=== PATIENT | male | born 1980 | race Caucasian/White ===

== ENCOUNTER 2024-07-28 22:04 | Inpatient (IN) | payer OTHER, SELFPAY ==
[~2024-07-28 22:04] MED LIST: Iopamidol 370 76% 100 ML VIAL ONE
[2024-07-28] MEDS ORDERED: Folic Acid 1 MG TAB ONE (22:41)
[2024-07-28] MEDS ORDERED: Diazepam 10 MG/2 ML SYRINGE ONE ×2 (22:42→23:44)
[2024-07-28 23:01] LABS: #Basophils Less than 0.03 10x3/uL (0.0-0.2); #Eosinophils Less than 0.03 10x3/uL (0.0-0.7); %Basophils 0.5 % (0.0-1.0); %Eosinophils 0.2 % (0.0-10.0); %Lymphocytes 20.2 % (21.0-51.0); %Monocytes 8.8 % (0.0-10.0); %Neutrophils 69.3 % (42.0-75.0); Hematocrit 39.3 % (42.0-52.0); Hemoglobin 13.6 g/dL (14.0-18.0); Mean Corpuscular HGB CONC 34.6 g/dL (32.0-36.0); Mean Corpuscular Hemoglobin 39.2 pg (27.0-31.0); Mean Corpuscular Volume 113.3 fL (78.0-98.0); Mean Platelet Volume 10.8 fL (7.4-10.4); Platelet Count 40 10x3/uL (130-400); RBC Distribution Width 13.2 % (11.5-14.5); Red Blood Cell (RBC) Count 3.47 mill/uL (4.70-6.10)
[2024-07-28 23:11] LABS: INR-International Normal Ratio 1.1; PTT 26.2 sec (22.9-36.1); Prothrombin Time 14.1 sec (12.0-14.7)
[2024-07-28 23:19] LABS: Hypochromia SLIGHT = 6-15 cells HPF (0-5); Macrocytosis SLIGHT = 6-15 cells HPF (0-5); Platelet Adequacy Comment Platelets Decreased; Polychromasia SLIGHT = 2-3 cells HPF (0-2); Troponin I Less than 0.010 ng/mL (< 0.028)
[2024-07-28 23:22] LABS: ALT (SGPT) 139 U/L (8-55); AST (SGOT) 234 U/L (5-34); Albumin 4.2 g/dL (3.5-5.0); Alkaline Phosphatase 114 U/L (40-110); Anion Gap 28 mmol/L (10-20); BUN (Urea Nitrogen) 12 mg/dL (8.9-20.6); Bilirubin, Total 1.7 mg/dL (0.2-1.2); Calc. Creatinine Clearance 0 mL/min (70-130); Calcium 9.2 mg/dL (7.8-10.44); Carbon Dioxide 15 mmol/L (22-29); Chloride 99 mmol/L (98-107); Estimated GFR 109; Globulin 2.5 g/dL (2.4-3.5); Glucose 139 mg/dL (70-105); Lipase 46 U/L (8-78); Magnesium 1.7 mg/dL (1.6-2.6); Potassium 3.5 mmol/L (3.5-5.1); Protein, Total 6.7 g/dL (6.0-8.3); Sodium 138 mmol/L (136-145)
[2024-07-28 23:23] LABS: Acetaminophen Less than 10 mcg/mL (Less than 10); Alcohol Less than 10.0 mg/dL (Less than 10); Salicylate Less than 8.0 mg/dL (Less than 8.0)
[2024-07-29 00:11] LABS: Bacteria/HPF None Seen HPF (None Seen); Bilirubin Negative (Negative); Blood, Urine 1+ (Negative); CAUTI Indications for Culture Alt mental st,lethar; Clarity Clear (Clear); Glucose, Urine (Dipstick) Normal (Negative); Ketone, Urine Trace mg/dL (Negative); Leukocyte Negative Leu/uL (Negative); Nitrite Negative (Negative); Protein, Urine (Dipstick) 50 mg/dL (Neg-Trace); RBC/HPF 0-3 HPF (0-3); Squamous Epithelial 0-3 HPF (0-3); Urobilinogen Normal mg/dL (Less than 2); WBC/HPF 0-3 HPF (0-3)
[2024-07-29 00:13] LABS: Urine Culture Reflex No No
[2024-07-29 00:24] LABS: Amphetamine Not Detected (NotDetected); Barbiturates Screen Not Detected (NotDetected); Benzodiazepine Screen Not Detected (NotDetected); Cocaine Metabolite Screen Not Detected (NotDetected); Methadone Not Detected (NotDetected); Methamphetamine Not Detected (NotDetected); Opiate Screen Not Detected (NotDetected); Oxycodone Screen Not Detected (NotDetected); Phencyclidine (PCP) Not Detected (NotDetected); THC/Cannabinoid Screen Not Detected (NotDetected); Tricyclic Screen Not Detected (NotDetected)
[2024-07-29] MEDS ORDERED: Magnesium 2 GM/50 ML BAG (IN WATER) ONE (00:51)
[2024-07-29] MEDS ORDERED: Ondansetron PF 4 MG/2 ML Vial IVP PRN (02:28)
[2024-07-29] MEDS ORDERED: Lorazepam 2 MG/ML VIAL IM PRN (02:58)
[2024-07-29] MEDS ORDERED: Ondansetron ODT 4 MG TAB PO PRN (02:58)
[2024-07-29] MEDS ORDERED: Lorazepam 1 MG TAB PO PRN (02:58)
[2024-07-29] MEDS ORDERED: Electrolyte Replacement Protocol 1 EACH FS PRN (03:00)
[2024-07-29 03:30] LABS: #Basophils Less than 0.03 10x3/uL (0.0-0.2); #Eosinophils Less than 0.03 10x3/uL (0.0-0.7); %Basophils 0.3 % (0.0-1.0); %Eosinophils 0.5 % (0.0-10.0); %Lymphocytes 32.7 % (21.0-51.0); %Monocytes 8.3 % (0.0-10.0); %Neutrophils 57.7 % (42.0-75.0); Hematocrit 37.5 % (42.0-52.0); Mean Corpuscular HGB CONC 34.7 g/dL (32.0-36.0); Mean Corpuscular Hemoglobin 38.8 pg (27.0-31.0); Mean Corpuscular Volume 111.9 fL (78.0-98.0); Mean Platelet Volume 9.7 fL (7.4-10.4); Platelet Count 35 10x3/uL (130-400); RBC Distribution Width 13.2 % (11.5-14.5); Red Blood Cell (RBC) Count 3.35 mill/uL (4.70-6.10)
[2024-07-29] MEDS ORDERED: Acetaminophen 500 MG TAB PO PRN (03:52)
[2024-07-29 04:00] LABS: Macrocytosis SLIGHT = 6-15 cells HPF (0-5); Platelet Adequacy Comment Platelets Decreased; Polychromasia SLIGHT = 2-3 cells HPF (0-2)
[2024-07-29 04:07] LABS: Lactic Acid 0.83 mmol/L (0.5-2.2)
[2024-07-29] MEDS: Lorazepam 1 MG TAB PO SCH (04:07)
[2024-07-29 04:08] LABS: Phosphorus 3.1 mg/dL (2.3-4.7)
[2024-07-29 04:11] LABS: ALT (SGPT) 120 U/L (8-55); AST (SGOT) 186 U/L (5-34); Albumin 3.8 g/dL (3.5-5.0); Alkaline Phosphatase 106 U/L (40-110); Anion Gap 17 mmol/L (10-20); BUN (Urea Nitrogen) 9 mg/dL (8.9-20.6); Bilirubin, Total 2.1 mg/dL (0.2-1.2); Calc. Creatinine Clearance 64 mL/min (70-130); Calcium 8.4 mg/dL (7.8-10.44); Carbon Dioxide 22 mmol/L (22-29); Chloride 98 mmol/L (98-107); Estimated GFR 118; Globulin 2.2 g/dL (2.4-3.5); Glucose 90 mg/dL (70-105); Magnesium 2.3 mg/dL (1.6-2.6); Potassium 3.3 mmol/L (3.5-5.1); Sodium 134 mmol/L (136-145)
[2024-07-29 04:30] VITALS: BMI 23.8
[2024-07-29 04:54] LABS: Actual Bicarbonate (HCO3v) 21.2 mEq/L (22-28); Base Excess -2.5 mEq/L (-2.0 to +3.0); Calcium, Ionized (venous) 1.09 mmol/L (1.16-1.32); Chloride (VBG) 96 mmol/L (98-106); Hematocrit-VBG 42 % (42.0-52.0); Hemoglobin (Hb) 14.2 g/dL (13.2-17.3); Potassium (VBG) 3.38 mmol/L (3.70-5.30); Sodium 134 mmol/L (133-146)
[2024-07-29] MEDS ORDERED: Metoprolol Tartrate 25 MG TAB PO SCH (09:00)
[2024-07-29] MEDS: Metoprolol Tartrate 25 MG TAB PO SCH ×3 (10:01→15:57)
[2024-07-29] MEDS: dilTIAZem 25 MG/5 ML VIAL SLOW IVP SCH (10:01)
[2024-07-29] MEDS: Multivit, Therapeutic 1 TAB PO SCH (10:01)
[2024-07-29] MEDS: Potassium Chloride 20 MEQ TAB PO SCH (10:04)
[2024-07-29] MEDS: Pantoprazole 40 MG VIAL IVP SCH (10:06)
[2024-07-29] MEDS: Diltiazem HCl/D5W 125 MG in Premix 1 BAG IVPB SCH (10:12)
[2024-07-29] MEDS: Senokot S 8.6-50 MG TAB PO SCH (14:55)
[2024-07-29] MEDS: Polyethylene Glycol 3350 17 GM Packet PO SCH (14:55)
[2024-07-30] MEDS ORDERED: Lorazepam 1 MG TAB PO PRN (02:58)
[2024-07-30] MEDS: Thiamine HCl 200 MG/2 ML VIAL SLOW IVP SCH (03:06)
[2024-07-30 05:10] LABS: ALT (SGPT) 92 U/L (8-55); AST (SGOT) 105 U/L (5-34); Albumin 3.9 g/dL (3.5-5.0); Alkaline Phosphatase 131 U/L (40-110); Anion Gap 18 mmol/L (10-20); BUN (Urea Nitrogen) 15 mg/dL (8.9-20.6); Bilirubin, Total 1.2 mg/dL (0.2-1.2); Calc. Creatinine Clearance 101 mL/min (70-130); Calcium 9.6 mg/dL (7.8-10.44); Carbon Dioxide 23 mmol/L (22-29); Chloride 99 mmol/L (98-107); Estimated GFR 101; Globulin 2.3 g/dL (2.4-3.5); Glucose 77 mg/dL (70-105); Magnesium 1.7 mg/dL (1.6-2.6); Potassium 4.5 mmol/L (3.5-5.1); Protein, Total 6.2 g/dL (6.0-8.3); Sodium 135 mmol/L (136-145)
[2024-07-30 05:30] LABS: #Basophils 0.03 10x3/uL (0.0-0.2); %Basophils 0.5 % (0.0-1.0); %Eosinophils 1.6 % (0.0-10.0); %Neutrophils 48.5 % (42.0-75.0); Hematocrit 39.6 % (42.0-52.0); Hemoglobin 13.7 g/dL (14.0-18.0); Mean Corpuscular HGB CONC 34.6 g/dL (32.0-36.0); Mean Corpuscular Hemoglobin 38.9 pg (27.0-31.0); Mean Corpuscular Volume 112.5 fL (78.0-98.0); Mean Platelet Volume 11.1 fL (7.4-10.4); Platelet Count 41 10x3/uL (130-400); RBC Distribution Width 12.9 % (11.5-14.5); Red Blood Cell (RBC) Count 3.52 mill/uL (4.70-6.10)
[2024-07-30] MEDS: Magnesium 2 GM/50 ML(in water) 2 GM in Premix 1 BAG IVPB SCH (08:53)
[2024-07-30] MEDS: Folic Acid 1 MG TAB PO SCH (08:54)
[2024-07-31] MEDS: Lorazepam 0.5 MG TAB PO SCH (02:51)
[2024-07-31] MEDS ORDERED: Lorazepam 1 MG TAB PO PRN (02:58)
[2024-07-31 05:02] LABS: ALT (SGPT) 70 U/L (8-55); AST (SGOT) 69 U/L (5-34); Albumin 3.5 g/dL (3.5-5.0); Alkaline Phosphatase 152 U/L (40-110); Anion Gap 14 mmol/L (10-20); BUN (Urea Nitrogen) 18 mg/dL (8.9-20.6); Bilirubin, Total 0.7 mg/dL (0.2-1.2); Calc. Creatinine Clearance 109 mL/min (70-130); Calcium 9.2 mg/dL (7.8-10.44); Carbon Dioxide 24 mmol/L (22-29); Chloride 101 mmol/L (98-107); Estimated GFR 110; Globulin 2.3 g/dL (2.4-3.5); Glucose 94 mg/dL (70-105); Magnesium 1.4 mg/dL (1.6-2.6); Potassium 4.1 mmol/L (3.5-5.1); Protein, Total 5.8 g/dL (6.0-8.3); Sodium 135 mmol/L (136-145)
[2024-07-31] MEDS: Magnesium Sulfate 4 GM in Sodium Chloride 0.9% 250 ML 250 ML IVPB SCH (05:51)
[2024-07-31] MEDS: Pantoprazole DR 40 MG TAB PO SCH (08:27)
[2024-07-31 15:55] VITALS: BP 149/98; TEMP 98.4
[2024-08-01] MEDS ORDERED: Lorazepam 0.5 MG TAB PO PRN (02:58)
[2024-08-01] MEDS ORDERED: Thiamine 100 MG TAB PO SCH (03:00)
== END 2024-07-31 17:10 | disposition home or self-care (01) | DRG 897 ==
LOC: ERS 22:04 → IMCU/EMU 07-29 02:30 → OBS 07-30 13:03
PROVIDERS: ADMIT Internal Medicine; ATTEND Family Medicine
PROC: HZ2ZZZZ Detoxification Services for Substance Abuse Treatment (ICD-10-PCS; principal; 2024-07-29)
DX: F10.139 Alcohol abuse with withdrawal, unspecified (principal); E87.20 Acidosis, unspecified; D61.818 Other pancytopenia; R56.9 Unspecified convulsions; D69.6 Thrombocytopenia, unspecified; K59.00 Constipation, unspecified; K76.0 Fatty (change of) liver, not elsewhere classified; I48.0 Paroxysmal atrial fibrillation
CPT/HCPCS: 36415; 70450; 71260; 74177; 80053; 80306; 80307; 81001; 82140; 82805; 83605; 83690; 83735; 83880; 84100; 84443; 84484; 85025; 85610; 85730; 93005; 93306; 96361; 96374; 96375; J2470; J3360; J3411; J3475; J7050; Q9967